=== PATIENT | male | born 1960 | race African-American/Black ===

== ENCOUNTER 2018-06-12 06:55 | Emergency (ER) | payer OTHER ==
--- NOTE | 2018-06-12 08:26 | RAD REPORT ---
EXAM DESCRIPTION: CT - Head C Spine Mpr Wo Con - 06/12/2018 7:26 am CLINICAL HISTORY: Head and neck injury status post fall. Head and neck pain COMPARISON: None. TECHNIQUE: Computed axial tomography of the head and cervical spine was obtained. Sagittal and coronal reconstruction was performed. All CT scans are performed using dose optimization technique as appropriate and may include automated exposure control or mA/KV adjustment according to patient size. FINDINGS: An intracranial bleed is not seen. The ventricles are normal in caliber. An extra-axial fl uid collection is not noted.Fluid within the visualized sinuses and mastoids is not seen A cervical fracture is not visualized. No dislocation is noted. Spondylosis involves the spine IMPRESSION: No acute intracranial abnormality is seen. A cervical fracture is not visualized. If the patient continues to have symptoms to suggest intracra nial /spinal cord pathology then MRI would be recommended
--- NOTE | 2018-06-12 09:10 | RAD REPORT ---
EXAM DESCRIPTION: RAD -Hand Left 3 View - 06/12/2018 8:21 am CLINICAL HISTORY: Left hand pain status post injury FINDINGS: A lucency is present within an ossicle at the first IP joint. Most likely this is not sign ificant. However, a fracture can have this appearance and clinical correlation is needed to see patie nt has point tenderness at this site. Otherwise no fracture or dislocation seen
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
[2018-06-12] MEDS ORDERED: LOSARTAN POTASSIUM 50 MG TABLET PO ONE (10:00)
[2018-06-12] MEDS ORDERED: METOPROLOL XL 100 MG TAB PO ONE (10:00)
[2018-06-12] MEDS ORDERED: hydroCHLOROthiazide 25 MG TAB ONE (10:24)
== END 2018-06-12 10:18 | disposition home or self-care (01) ==
LOC: ER 06:55
DX: S62.502A Fracture of unspecified phalanx of left thumb, initial encounter for closed fracture (principal); V49.40XA Driver injured in collision with unspecified motor vehicles in traffic accident, initial encounter; R51 Headache; M25.552 Pain in left hip; I10 Essential (primary) hypertension; Z88.0 Allergy status to penicillin
CPT/HCPCS: 70450; 72125; 99284

== ENCOUNTER 2019-04-07 04:04 | Emergency (ER) | payer OTHER ==
--- OUTSIDE RECORDS SUMMARY | 2019-04-07 04:06 | XMS REPORT ---
:1960 [facility] Address [address] [place] [address] Dr. Carroll [address] [place] [id number] Care Team Providers Name Role Phone Unavailable Unavailable Unavailable Problems This patient has no known problems. Allergies, Adverse Reactions, Alerts This patient has no known allergies or adverse reactions. Medications This patient has no known medications.
--- OUTSIDE RECORDS SUMMARY | 2019-04-07 04:07 | XMS REPORT | Summary of Care ---
:1960 Author Organization [facility] [place] [address] Care Team Providers Name Role Phone Unavailable Primary Care Provider Unavailable Reason for Visit Reason Comments Skin Check Full Body Skin check Encounter Details Date Type Department Care Team Description 11/07/2018 Office Visit [facility] Nazario Bajwa MD Skin Check (Full Body Medicine Dermatology 1977 [address] Skin check) 1977 [id number] [place] [address] [place] [address] Allergies Active Allergy Reactions Severity Noted Date Comments Penicillins 11/07/2018 documented as of this encounter (statuses as of 11/07/2018) Medications Medication Sig Dispensed Refills Start Date End Date Status Hydroquinone 4 % Apply to 30 g 1 11/07/2018 Active CREAIndications: affected area Hyperpigmentation of skin twice a day for 12 weeks losartan-hydrochlorothiaz Take 1 Tab by 0 Active rosemary (HYZAAR) 100-25 MG mouth daily. per tablet aspirin 81 MG tablet Take 81 mg by 0 Active mouth daily. Naproxen (NAPROSYN OR) Take 220 mg by 0 Active mouth. ibandronate (BONIVA) 150 Take 150 mg by 0 Active MG tablet mouth every 30 days. Metoprolol Succinate 100 100 mg=1 cap, 0 03/28/2018 Active MG CS24 PO, Daily, 0 Refill(s) losartan-hydrochlorothiaz losartan 100 0 03/28/2018 Active rosemary (HYZAAR) 100-25 MG mg-hydrochlorot per tablet hiazide 25 mg tablet naproxen (NAPROSYN) 500 naproxen 500 mg 0 Active MG tablet tablet documented as of this encounter (statuses as of 11/07/2018) Active Problems Not on filedocumented as of this encounter (statuses as of 11/07/2018) Social History Tobacco Use Types Packs/Day Years Used Date Never Smoker Smokeless Tobacco: Never Used Alcohol Use Drinks/Week oz/Week Comments Yes Alcohol Habits Answer Date Recorded How often do you have a drink containing alcohol? Never 11/07/2018 How many drinks containing alcohol do you have on a typical Not asked day when you are drinking? How often do you have six or more drinks on one occasion? Not asked Sex Assigned at Date Recorded Not on file Job Start Date Occupation Industry Not on file Not on file Not on file Travel History Travel Start Travel End No recent travel history available. documented as of this encounter Last Filed Vital Signs Vital Sign Reading Time Taken Comments Blood Pressure 152/91 11/07/2018 9:36 AM CDT Pulse 65 11/07/2018 9:36 AM CDT Temperature 36.3 C (97.4 F) 11/07/2018 9:36 AM CDT Respiratory Rate - - Oxygen Saturation - - Inhaled Oxygen Concentration - - Weight 165.6 kg (365 lb) 11/07/2018 9:36 AM CDT Height 185.4 cm (6' 1") 11/07/2018 9:36 AM CDT Body Mass Index 48.16 11/07/2018 9:36 AM CDT documented in this encounter Progress Notes Nazario Bajwa MD - 11/07/2018 9:00 AM CDT Name: Joel Horn Date: 11/07/18 Chief Complaint: Chief Complaint Patient presents with Skin Check Full Body Skin check HPI: Joel Horn is a 58 y.o. male who presents for discoloration on face. It started 15 years ago. He hada mole removed around that site on right face. It does not hurt or itch. He tried a bleaching cream without help. He has skin tags and moles as well. None are bleeding or growing. PMH: (-) for personal history of skin cancer FH: (-) for family history of skin cancer Medications: No current outpatient medications on file. The patient's intake sheet was reviewed today, with information pertaining to past medical history, family medical history, social history, allergies, and medications, reviewed. The intake sheets are by protocol scanned into the system after the clinic visit. ROS: Constitutional: (-) for fevers, (-) for chills Skin: (-) for rash, (-) for pruritus Physical Exam: Vitals: Blood pressure (!) 152/91, pulse 65, temperature 97.4 F (36.3 C), temperature source Oral, height 6' 1" (1.854 m), weight (!) 365 lb (165.6 kg). Constitutional: well developed, well nourished, not diaphoretic, not distressed HEENT: normocephalic, atraumatic Neurologic: alert and oriented. Normal mood and affect. Skin: warm and dry Hyperpigmented patch on right cheek Several pedunculated papules around neck and axilla Assessment and Plan: 1. Hyperpigmentation of skin (right cheek): likely post-inflammatory hyperpigmentation - I discussed different treatment options and difficulty in treating the discoloration, which may bepersistent. - Start hydroquinone 4% cream twice a day for 12 weeks. Risks and side effects discussed. If not improving, follow up with Dr. Randall for further management. - I recommended using a broad-spectrum sunscreen with at least an SPF 30 and to re-apply every 2 hours with sun exposure. 2. Skin tags - This is benign appearing. Reassurance provided. Removal discussed and he will make a follow up later. Return to clinic as needed. Nazario Bajwa MD documented in this encounter Plan of Treatment Date Type Specialty Care Team Description 02/04/2019 Office Visit Dermatology Nazario Bajwa MD [address] [place] [address] [address] [place] [address] [phone] Health Maintenance Due Date Last Done Comments COLON CANCER SCREENING: COLONOSCOPY 1960 TETANUS SHOT (ADULT) 1974 BMI FOLLOW UP PLAN 1977 HEPATITIS C SCREENING 1977 HIV SCREENING 1977 FLU VACCINE > 6 MONTHS 09/18/2018 documented as of this encounter Results Not on filedocumented in this encounter Visit Diagnoses Diagnosis Hyperpigmentation of skin - Primary Dyschromia, unspecified Skin tag Unspecified hypertrophic and atrophic condition of skin documented in this encounter Insurance Payer Benefit Plan / Subscriber ID Effective Dates Phone Address Type Group [facility] OPEN ACCESS xxxxxxxxxxx 2005-Present [id number] PPO PLUS - BRIANNE ARREOLA [id number] documented as of this encounter
[2019-04-07] MEDS ORDERED: FUROSEMIDE 40 MG/4 ML VIAL ONE (05:07)
[2019-04-07] MEDS ORDERED: FUROSEMIDE 20 MG/ 2ML VIAL ONE (05:07)
[2019-04-07 05:24] LABS: Protime INR 1.02
[2019-04-07 05:27] LABS: Absolute Lymphocytes (CBC) 1.3 K/uL (0.7-4.9); Basophils % 0.8 % (0-1.3); Hematocrit 37.5 % (39.6-49.0); MPV 9.5 fL (7.6-11.3); RBC Red Blood Cell Count 4.56 M/uL (4.33-5.43)
[2019-04-07 05:45] LABS: ALT/SGPT 22 U/L (12-78); AST/SGOT 18 U/L (15-37); Albumin 3.5 g/dL (3.4-5.0); Alkaline Phosphatase 73 U/L (45-117); BUN Blood Urea Nitrogen 13 mg/dL (7-18); Bicarbonate 31 mmol/L (21-32); Bilirubin Direct 0.2 mg/dL (0-0.2); Bilirubin Total 0.6 mg/dL (0.2-1.0); Glucose Level 105 mg/dL (74-106); NT PRO-BNP 54 pg/mL (<125); Potassium 3.8 mmol/L (3.5-5.1); Protein, Total 7.2 g/dL (6.4-8.2); Sodium Level 142 mmol/L (136-145); Troponin (Emerg Dept Use Only) < 0.02 ng/mL (0.0-0.045)
--- NOTE | 2019-04-07 06:49 | EDPHYS ---
Physician Documentation [facility] Name: Joel Horn Age: 59 yrs Sex: Male : 1960 Arrival Date: 04/07/2019 Time: 04:07 Bed 7 Private MD: ED Physician Macario Curiel HPI: 04/07 05:06 This 59 yrs old Black Male presents to ER via Ambulatory with complaints of Leg Pain. ma2 05:06 This 59 yrs old Black Male presents to ER via Ambulatory with complaints of Leg Pain ma2 and bilateral swelling for 4 weeks. 05:06 Onset: The symptoms/episode began/occurred gradually, 1 month(s) ago. Associated signs ma2 and symptoms: Pertinent positives: Pertinent negatives numbness, tingling, warmth. Severity of symptoms: At their worst the symptoms were mild, in the emergency department the symptoms are unchanged. The patient has experienced similar episodes in the past. does not take his prescribed lasix because it makes him urinate frequently, he has leg swellin gfor a month, however decided to come today because ehe has left neck pain and left upper arm pain . Historical: - Allergies: 04:25 PENICILLINS; ao - Home Meds: 04:25 losartan 100 mg oral tab 1 tab once daily [Active]; Lasix 40 mg Oral tab 1 tab 2 times ao per day [Active]; potassium chloride 20 mEq Oral pack 1 packet 2 times per day [Active]; cefdinir 300 mg oral cap 1 cap every 12 hours [Active]; Multiple Vitamins oral tab [Active]; aspirin 81 mg Oral chew 1 tab once daily [Active]; B-12 DOTS 500 mcg oral tab [Active]; - PMHx: 04:25 Hypertension; ao - PSHx: 04:25 None; ao - Immunization history:: Adult Immunizations up to date. - Coronavirus screen:: The patient has NOT traveled to [place] in the past 14 days. Proceed with normal triage process as indicated. The patient has NOT had contact with known/suspected case of Coronavirus? Proceed with normal triage procedures. - Social history:: Patient/guardian denies using alcohol, The patient lives with family, Smoking status: unknown Patient uses alcohol, occasionally. Patient/guardian denies using street drugs. - Family history:: not pertinent. - Ebola Screening: : Patient negative for fever greater than or equal to 101.5 degrees Fahrenheit, and additional compatible Ebola Virus Disease symptoms Patient denies exposure to infectious person Patient denies travel to an Ebola-affected area in the 21 days before illness onset. ROS: 05:06 Constitutional: Negative for fever, chills, and weight loss, Cardiovascular: Negative ma2 for chest pain, palpitations, and edema, Respiratory: Negative for shortness of breath, cough, wheezing, and pleuritic chest pain, Abdomen/GI: Negative for abdominal pain, nausea, diarrhea, and constipation. 05:06 All other systems are negative. Exam: 05:06 Constitutional: This is a well developed, well nourished patient who is awake, alert, ma2 and in no acute distress. Eyes: Pupils equal round and reactive to light, extra-ocular motions intact. Lids and lashes normal. Conjunctiva and sclera are non-icteric and not injected. Cornea within normal limits. Periorbital areas with no swelling, redness, or edema. ENT: Nares patent. No nasal discharge, no septal abnormalities noted. Tympanic membranes are normal and external auditory canals are clear. Oropharynx with no redness, swelling, or masses, exudates, or evidence of obstruction, uvula midline. Mucous membranes moist. Neck: left neck muscle ttp, and worse with turnin ghte head to left, muscle sprains on left shoulder Trachea midline, no thyromegaly or masses palpated, and no cervical lymphadenopathy. Supple, full range of motion without nuchal rigidity, or vertebral point tenderness. No Meningismus. Chest/axilla: Normal chest wall appearance and motion. Nontender with no deformity. No lesions are appreciated. Cardiovascular: Regular rate and rhythm with a normal S1 and S2. No gallops, murmurs, or rubs. Normal PMI, no JVD. No pulse deficits. Respiratory: Lungs have equal breath sounds bilaterally, clear to auscultation and percussion. No rales, rhonchi or wheezes noted. No increased work of breathing, no retractions or nasal flaring. Abdomen/GI: Soft, non-tender, with normal bowel sounds. No distension or tympany. No guarding or rebound. No evidence of tenderness throughout. Vital Signs: 04:25 BP 173 / 97; Pulse 65; Resp 20; Temp 98.9(O); Pulse Ox 96% on R/A; Weight 158.76 kg; ao Height 5 ft. 8 in. (172.72 cm); Pain 0/10; 05:30 BP 169 / 104; Pulse 66; Resp 18; Pulse Ox 96% on R/A; jb4 06:30 BP 148 / 85; Pulse 69; Resp 15; Pulse Ox 95% on R/A; Pain 0/10; jb4 04:25 Body Mass Index 53.22 (158.76 kg, 172.72 cm) ao MDM: 04:12 Patient medically screened. ct2 05:06 Differential diagnosis: contusion, abrasion, tendonitis. Data reviewed: vital signs, ma2 nurses notes. Counseling: I had a detailed discussion with the patient and/or guardian regarding: the historical points, exam findings, and any diagnostic results supporting the discharge/admit diagnosis, the presence of at least one elevated blood pressure reading (>120/80) during this emergency department visit. 06:49 ED course: doppler negative per US tech. 04/07 04:52 Order name: Basic Metabolic Panel; Complete Time: 06:28 04/07 04:52 Order name: CBC with Diff; Complete Time: 06:28 04/07 04:52 Order name: LFT's; Complete Time: 06:28 04/07 04:52 Order name: Magnesium; Complete Time: 06:28 04/07 04:52 Order name: NT PRO-BNP; Complete Time: 06:28 04/07 04:52 Order name: PT-INR; Complete Time: 06:28 04/07 04:52 Order name: Troponin (emerg Dept Use Only); Complete Time: 06:28 04/07 04:52 Order name: XRAY Chest (1 view) 04/07 04:52 Order name: EKG; Complete Time: 04:53 04/07 04:52 Order name: Cardiac monitoring; Complete Time: 05:15 04/07 04:52 Order name: EKG - Nurse/Tech; Complete Time: 05:15 04/07 04:52 Order name: D-Dimer; Complete Time: 06:28 04/07 05:11 Order name: US Extremity Venous Unilateral Ltd 04/07 04:52 Order name: IV Saline Lock; Complete Time: 05:15 04/07 04:52 Order name: Labs collected and sent; Complete Time: 05:16 04/07 04:52 Order name: O2 Per Protocol; Complete Time: 05:16 04/07 04:52 Order name: O2 Sat Monitoring; Complete Time: 05:16 Administered Medications: 05:15 Drug: Lasix 60 mg Route: IVP; Site: right antecubital; ao 06:41 Follow up: Response: No adverse reaction ao Disposition: 04/07/19 06:48 Discharged to Home. Impression: Sprain of joints and ligaments of other parts of neck. - Condition is Stable. - Discharge Instructions: Edema, [id number]. - Medication Reconciliation Form, Thank You Letter, Antibiotic Education, Prescription Opioid Use form. - Follow up: Private Physician; When: Tomorrow; Reason: Continuance of care. - Notes: see your pcp for right leg ultrasound in 1 day Signatures: Dispatcher [employer] Josiah Hsu RN RN ao Alzahri, Mohammad, MD MD ma2 Corrections: (The following items were deleted from the chart) 06:59 06:48 04/07/2019 06:48 Discharged to Home. Impression: Sprain of joints and ligaments ao of other parts of neck. Condition is Stable. Forms are Medication Reconciliation Form, Thank You Letter, Antibiotic Education, Prescription Opioid Use. Follow up: Private Physician; When: Tomorrow; Reason: Continuance of care. ma2
--- NOTE | 2019-04-07 06:49 | ER ---
[facility] Name: Joel Horn Age: 59 yrs Sex: Male : 1960 Arrival Date: 04/07/2019 Time: 04:07 Bed 7 Private MD: Diagnosis: Sprain of joints and ligaments of other parts of neck Presentation: 04/07 04:21 Presenting complaint: Patient states: Right leg for tonight but patient is also concern ao about hearth problems. Patient C/O chest tingling and SOB. Transition of care: patient was not received from another setting of care. Onset of symptoms is unknown. Risk Assessment: Do you want to hurt yourself or someone else? Patient reports no desire to harm self or others. Initial Sepsis Screen: Does the patient meet any 2 criteria? No. Patient's initial sepsis screen is negative. Does the patient have a suspected source of infection? No. Patient's initial sepsis screen is negative. Care prior to arrival: None. 04:21 Method Of Arrival: Ambulatory ao 04:21 Acuity: SHUKRI 3 ao Triage Assessment: 06:58 General: Appears in no apparent distress. Behavior is calm, cooperative, appropriate ao for age. Historical: - Allergies: 04:25 PENICILLINS; ao - Home Meds: 04:25 losartan 100 mg oral tab 1 tab once daily [Active]; Lasix 40 mg Oral tab 1 tab 2 times ao per day [Active]; potassium chloride 20 mEq Oral pack 1 packet 2 times per day [Active]; cefdinir 300 mg oral cap 1 cap every 12 hours [Active]; Multiple Vitamins oral tab [Active]; aspirin 81 mg Oral chew 1 tab once daily [Active]; B-12 DOTS 500 mcg oral tab [Active]; - PMHx: 04:25 Hypertension; ao - PSHx: 04:25 None; ao - Immunization history:: Adult Immunizations up to date. - Coronavirus screen:: The patient has NOT traveled to [place] in the past 14 days. Proceed with normal triage process as indicated. The patient has NOT had contact with known/suspected case of Coronavirus? Proceed with normal triage procedures. - Social history:: Patient/guardian denies using alcohol, The patient lives with family, Smoking status: unknown Patient uses alcohol, occasionally. Patient/guardian denies using street drugs. - Family history:: not pertinent. - Ebola Screening: : Patient negative for fever greater than or equal to 101.5 degrees Fahrenheit, and additional compatible Ebola Virus Disease symptoms Patient denies exposure to infectious person Patient denies travel to an Ebola-affected area in the 21 days before illness onset. Screenin:23 Abuse screen: Denies threats or abuse. Denies injuries from another. Nutritional ao screening: No deficits noted. Tuberculosis screening: No symptoms or risk factors identified. Fall Risk None identified. Assessment: 04:30 General: Appears in no apparent distress. comfortable. Pain: Denies pain. Neuro: Level ao of Consciousness is awake, alert, obeys commands, Oriented to person, place, time, situation, Appropriate for age Moves all extremities. Full function Speech is normal. Cardiovascular: Capillary refill < 3 seconds Patient's skin is warm and dry. Respiratory: Reports shortness of breath Airway is patent Respiratory effort is even, unlabored, Respiratory pattern is regular, symmetrical. GI: Abdomen is obese. : No signs and/or symptoms were reported regarding the genitourinary system. EENT: No signs and/or symptoms were reported regarding the EENT system. Derm: No signs and/or symptoms reported regarding the dermatologic system. Musculoskeletal: No signs and/or symptoms reported regarding the musculoskeletal system. 05:40 Reassessment: Patient appears in no apparent distress at this time. Patient and/or ao family updated on plan of care and expected duration. Pain level reassessed. waiting on labs. 06:41 Reassessment: Patient appears in no apparent distress at this time. Patient and/or ao family updated on plan of care and expected duration. Pain level reassessed. 06:59 Reassessment: Instructions given to patient and . Patient agree with POC and to ao follow up with PCP. Vital Signs: 04:25 BP 173 / 97; Pulse 65; Resp 20; Temp 98.9(O); Pulse Ox 96% on R/A; Weight 158.76 kg; ao Height 5 ft. 8 in. (172.72 cm); Pain 0/10; 05:30 BP 169 / 104; Pulse 66; Resp 18; Pulse Ox 96% on R/A; jb4 06:30 BP 148 / 85; Pulse 69; Resp 15; Pulse Ox 95% on R/A; Pain 0/10; jb4 04:25 Body Mass Index 53.22 (158.76 kg, 172.72 cm) ao ED Course: 04:07 Patient arrived in ED. ag3 04:10 Josiah Garay RN is Primary Nurse. ao 04:12 Macario Curiel MD is Attending Physician. ma2 04:23 Triage completed. ao 04:26 Arm band placed on right wrist. Patient notified of wait time. ao 04:55 Inserted saline lock: 20 gauge in right antecubital area, using aseptic technique. ao Blood collected. 05:12 XRAY Chest (1 view) In Process Unspecified. EDMS 06:23 Patient has correct armband on for positive identification. Pulse ox on. ao 06:57 US Extremity Venous Unilateral Ltd In Process Unspecified. EDMS 06:57 No provider procedures requiring assistance completed. IV discontinued, intact, ao bleeding controlled, No redness/swelling at site. Pressure dressing applied. Administered Medications: 05:15 Drug: Lasix 60 mg Route: IVP; Site: right antecubital; ao 06:41 Follow up: Response: No adverse reaction ao Output: 06:30 Urine: 1425ml (Voided); Total: 1425ml. jb4 Outcome: 06:48 Discharge ordered by . ma2 06:58 Discharged to home ambulatory. ao 06:58 Condition: stable 06:58 Discharge instructions given to patient, Instructed on discharge instructions, follow up and referral plans. Demonstrated understanding of instructions, follow-up care. 06:59 Patient left the ED. ao Signatures: Dispatcher [employer] EDJosiah Escalante RN RN ao Bryson, James, RN RN jb4 Alzahri, Mohammad, MD MD ak2 Anya Aguilera 3 Corrections: (The following items were deleted from the chart) 06:44 06:30 BP 148 / 85; Pulse 69bpm; Resp 15bpm; Pulse Ox 95% RA; jb4 jb4
--- NOTE | 2019-04-07 06:55 | RAD REPORT ---
EXAM DESCRIPTION: RAD - Chest Single View - 04/07/2019 5:12 am CLINICAL HISTORY: CONGESTION Chest pain. COMPARISON: No comparisons FINDINGS: Portable technique limits examination quality. The lungs are grossly clear. The heart is upper limit of normal in size. No displaced fractures. IMPRESSION: No acute intrathoracic process suspected.
--- NOTE | 2019-04-07 07:02 | RAD REPORT ---
EXAM DESCRIPTION: US - Extremity Venous Uni Ltd - 04/07/2019 6:52 am CLINICAL HISTORY: swelling;Pain Leg swelling and edema. COMPARISON: EXT VENOUS UNI LTD dated 03/14/2009 FINDINGS: Right lower extremity venous system was interrogated with Doppler technique. Normal flow, compressibility and augmentation was noted. There is no DVT present. IMPRESSION: No evidence of right lower extremity deep venous thrombosis.
[2019-04-07 07:07] VITALS: TEMP 98.9
[2019-04-07 07:10] VITALS: BP 148/85; O2SAT 95
--- NOTE | 2019-04-07 15:25 | EKG ---
Test Date: 2019-04-07 Test Time: 04:34:45 Tax Specialist: ADITI MEASUREMENT RESULTS: Intervals: Rate: 67 ID: [id number] QRSD: 100 QT: 426 QTc: 450 [place]: P: 23 ID: [id number] QRS: 29 T: 43 INTERPRETIVE STATEMENTS: Normal sinus rhythm Normal ECG No previous ECG available for comparison Electronically Signed On 04-07-19 15:24:50 COFFEE URN ATTENDANT by Jorden Muir
== END 2019-04-07 06:59 | disposition home or self-care (01) ==
LOC: ER 04:04
DX: S13.8XXA Sprain of joints and ligaments of other parts of neck, initial encounter (principal); I10 Essential (primary) hypertension; Z79.82 Long term (current) use of aspirin; Z88.0 Allergy status to penicillin
CPT/HCPCS: 93005; 85025; 80048; 36415; 83735; 85610; 85379; 80076; 84484; 83880; 71045; 93971; 96374; 99284; J1940 ×2

== ENCOUNTER 2023-07-14 16:39 | Emergency (ER) | payer OTHER ==
[2023-07-14] MEDS ORDERED: ONDANSETRON 4 MG/2 ML VIAL ONE (16:48)
[2023-07-14] MEDS ORDERED: MORPHINE 4 MG/ML SYR ONE (16:48)
[2023-07-14] MEDS ORDERED: IBUPROFEN 400 MG TAB ONE (16:51)
--- NOTE | 2023-07-14 17:08 | RAD REPORT ---
EXAM DESCRIPTION: RAD - Wrist Right 3 View - 07/14/2023 4:58 pm CLINICAL HISTORY: PAIN COMPARISON: No comparisons FINDINGS/IMPRESSION: No acute fracture. Widening of the scapholunate interval likely chronic. Radioc arpal joint space narrowing. Note that the scaphoid is not well assessed. If there is concern for sca phoid fracture, a dedicated scaphoid view or CT could better evaluate.
--- NOTE | 2023-07-14 18:46 | RAD REPORT ---
EXAM DESCRIPTION: RAD - Lumbar Spine 3 Views - 07/14/2023 6:38 pm CLINICAL HISTORY: PAIN COMPARISON: LUMBAR SPINE 3 VIEWS dated 08/05/2014 FINDINGS/IMPRESSION: No acute fracture. Levoconvex curvature centered at L1. Multilevel degenerative disc disease with mild to moderate disc height loss and endplate spurring which is diffuse.
--- NOTE | 2023-07-14 18:47 | RAD REPORT ---
EXAM DESCRIPTION: RAD - Thoracic Spine Ap/Lat - 07/14/2023 6:38 pm CLINICAL HISTORY: PAIN COMPARISON: No comparisons FINDINGS/IMPRESSION: No acute fracture. No malalignment. Mild disc height loss and endplate spurring which is diffuse.
--- NOTE | 2023-07-14 18:49 | RAD REPORT ---
EXAM DESCRIPTION: RAD - C Spine Ap/Lat - 07/14/2023 6:38 pm CLINICAL HISTORY: PAIN COMPARISON: No comparisons FINDINGS: No acute fracture. No subluxation. Mild diffuse disc height loss and endplate spurring. IMPRESSION: No acute osseous abnormality involving the cervical spine.
[2023-07-14] MEDS ORDERED: CYCLOBENZAPRINE 10 MG TAB ONE (19:27)
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
[2023-07-14] MEDS ORDERED: AMLODIPINE 10 MG TAB ONE (20:03)
[2023-07-14 22:56] VITALS: TEMP 97.8; O2SAT 98
[2023-07-14 23:18] VITALS: BP 178/102
== END 2023-07-14 22:20 | disposition short-term general hospital (02) ==
LOC: ER 16:39
DX: M54.9 Dorsalgia, unspecified (principal); M54.2 Cervicalgia; V69.9XXA Occupant (driver) (passenger) of heavy transport vehicle injured in unspecified traffic accident, initial encounter; Z88.0 Allergy status to penicillin
CPT/HCPCS: 72040; 72070; 72100; 99285; J2405